=== PATIENT | male | born 2000 | race Caucasian/White ===

== ENCOUNTER 2021-11-06 17:50 | Emergency (ER) | payer OTHER, SELFPAY ==
[2021-11-06] MEDS ORDERED: Ondansetron ODT 4 MG TAB ONE (18:42)
== END 2021-11-06 20:33 | disposition home or self-care (01) ==
LOC: ERS 17:50
DX: J10.1 Influenza due to other identified influenza virus with other respiratory manifestations (principal); F17.210 Nicotine dependence, cigarettes, uncomplicated
CPT/HCPCS: 87804; 99284; Q0162